=== PATIENT | female | born 1985 | race Caucasian/White ===

== ENCOUNTER 2017-10-15 13:05 | Inpatient (IN) | payer BC, OTHER ==
[2017-10-15] MEDS: HYDROmorphONE 1 MG/ML SYG IV (20:35)
[2017-10-15] MEDS: METOCLOPRAMIDE 10 MG INJ IV (20:35)
[2017-10-15] MEDS: ONDANSETRON 4 MG INJ IV (20:35)
[2017-10-15 20:42] LABS: ADD MAN DIFF? NO
[2017-10-15] MEDS: SOD CHLORIDE 0.9% 1,000 ML IV (20:42)
[2017-10-15 20:46] LABS: BASOPHILS % 0.2 % (0.0-2.0); EOSINOPHILS # 0.1 10^3/ul (0.0-0.5); EOSINOPHILS % 1.3 % (0.0-7.0); HEMATOCRIT 28.9 % (37.0-47.0); HEMOGLOBIN 9.2 g/dl (12.0-16.0); LYMPHOCYTES # 0.8 10^3/ul (0.8-2.9); LYMPHOCYTES % 9.9 % (15.0-51.0); MEAN CORPUSCULAR HEMOGLOBIN 24.6 pg (29.0-33.0); MEAN CORPUSCULAR HGB CONC 31.8 g/dl (32.0-37.0); MEAN CORPUSCULAR VOLUME 77.3 fl (82.0-101.0); MEAN PLATELET VOLUME 11.1 fl (7.4-10.4); MONOCYTE # 0.8 10^3/ul (0.3-0.9); MONOCYTES % 9.7 % (0.0-11.0); NEUTROPHIL # 6.6 10^3/ul (1.6-7.5); NEUTROPHILS % 77.8 % (39.0-77.0); PLATELET COUNT 159 10^3/UL (140-415); RED BLOOD COUNT 3.74 10^6/ul (4.20-5.40); RED CELL DISTRIBUTION WIDTH 18.4 % (11.5-14.5)
[2017-10-15 20:46] LABS: WHITE BLOOD COUNT 8.5 10^3/ul (4.8-10.8)
[2017-10-15 21:06] LABS: ALANINE AMINOTRANSFERASE 32 IU/L (13-69); ALBUMIN 3.3 g/dl (3.3-4.9); ALKALINE PHOSPHATASE 170 IU/L (42-121); ANION GAP 18 (8-16); ASPARTATE AMINO TRANSFERASE 43 IU/L (15-46); BILIRUBIN,INDIRECT 0.5 mg/dl (0-1.1); BILIRUBIN,TOTAL 0.5 mg/dl (0.2-1.3); BLOOD UREA NITROGEN 8 mg/dl (7-20); CARBON DIOXIDE 30 mmol/L (21-31); CHLORIDE 91 mmol/L (97-110); CREATININE 0.44 mg/dl (0.44-1.00); GLUCOSE 116 mg/dl (70-220); LIPASE < 10 U/L (23-300); POTASSIUM 3.4 mmol/L (3.5-5.1); SODIUM 136 mmol/L (135-144); TOTAL PROTEIN 6.6 g/dl (6.1-8.1)
[2017-10-15 21:20] LABS: INR 1.35; PROTIME 16.9 Sec (11.9-14.9); PT RATIO 1.3
[2017-10-15] MEDS ORDERED: NACL 0.9% 3 ML SYG IV (23:30)
[2017-10-15] MEDS ORDERED: ACETAMINOPHEN 325 MG TAB PO (23:30)
[2017-10-16] MEDS: DEXTROSE 5%-0.45% NACL 1,000 ML IV ×2 (00:34→18:22)
[2017-10-16] MEDS: morphine 2 MG INJ IV ×5 (00:52→20:28)
[2017-10-16 05:25] LABS: ADD MAN DIFF? NO
[2017-10-16 05:31] LABS: BASOPHILS % 0.1 % (0.0-2.0); EOSINOPHILS # 0.1 10^3/ul (0.0-0.5); EOSINOPHILS % 0.6 % (0.0-7.0); HEMATOCRIT 26.8 % (37.0-47.0); HEMOGLOBIN 8.5 g/dl (12.0-16.0); LYMPHOCYTES # 0.9 10^3/ul (0.8-2.9); MEAN CORPUSCULAR HEMOGLOBIN 24.6 pg (29.0-33.0); MEAN CORPUSCULAR HGB CONC 31.7 g/dl (32.0-37.0); MEAN CORPUSCULAR VOLUME 77.7 fl (82.0-101.0); MEAN PLATELET VOLUME 11.5 fl (7.4-10.4); MONOCYTE # 0.7 10^3/ul (0.3-0.9); MONOCYTES % 8.4 % (0.0-11.0); NEUTROPHILS % 78.1 % (39.0-77.0); PLATELET COUNT 171 10^3/UL (140-415); RED BLOOD COUNT 3.45 10^6/ul (4.20-5.40); RED CELL DISTRIBUTION WIDTH 18.4 % (11.5-14.5)
[2017-10-16 05:31] LABS: WHITE BLOOD COUNT 7.7 10^3/ul (4.8-10.8)
[2017-10-16 06:03] LABS: ALANINE AMINOTRANSFERASE 34 IU/L (13-69); ALBUMIN 3.1 g/dl (3.3-4.9); ALBUMIN/GLOBULIN RATIO 0.93; ALKALINE PHOSPHATASE 151 IU/L (42-121); ANION GAP 15 (8-16); ASPARTATE AMINO TRANSFERASE 40 IU/L (15-46); BILIRUBIN,INDIRECT 0.3 mg/dl (0-1.1); BILIRUBIN,TOTAL 0.3 mg/dl (0.2-1.3); BLOOD UREA NITROGEN 7 mg/dl (7-20); CALCIUM 8.6 mg/dl (8.4-10.2); CARBON DIOXIDE 29 mmol/L (21-31); CHLORIDE 95 mmol/L (97-110); CREATININE 0.41 mg/dl (0.44-1.00); GLUCOSE 131 mg/dl (70-220); MAGNESIUM 1.7 mg/dl (1.7-2.5); PHOSPHORUS 3.9 mg/dl (2.5-4.9); POTASSIUM 3.4 mmol/L (3.5-5.1); SODIUM 136 mmol/L (135-144); TOTAL PROTEIN 6.4 g/dl (6.1-8.1)
[2017-10-16] MEDS: PANTOPRAZOLE 40 MG INJ IV (06:19)
[2017-10-16] MEDS: METOCLOPRAMIDE 10 MG INJ IV (06:32)
[2017-10-16 07:44] LABS: ADD UMIC YES; UR ASCORBIC ACID NEGATIVE (NEGATIVE); UR BACTERIA FEW /HPF (NONE SEEN); UR BILIRUBIN (Dip) 1+ mg/dL (NEGATIVE); UR BLOOD (Dip) NEGATIVE (NEGATIVE); UR CLARITY SLIGHTLY CLOUDY (CLEAR); UR COLOR AMBER (YELLOW); UR GLUCOSE (Dip) NEGATIVE (NEGATIVE); UR KETONES (Dip) 2+ mg/dL (NEGATIVE); UR LEUKOCYTE ESTERASE (Dip) NEGATIVE Leu/ul (NEGATIVE); UR MUCUS MODERATE /HPF (NONE SEEN); UR NITRITE (Dip) NEGATIVE (NEGATIVE); UR RBC 1 /HPF (0-5); UR SPECIFIC GRAVITY (Dip) 1.029 (1.003-1.030); UR SQUAMOUS EPITHELIAL CELL MANY /HPF (FEW); UR TOTAL PROTEIN (Dip) 2+ mg/dl (NEGATIVE); UR UROBILINOGEN (Dip) 2+ mg/dL (NEGATIVE); UR WBC 10 /HPF (0-5)
[2017-10-16] MEDS: POTASSIUM CHLORIDE 30 MEQ in DEXTROSE 5% 250 ML IVPB (09:43)
[2017-10-16] MEDS ORDERED: HYDROmorphONE 4 MG TAB PO (14:00)
[2017-10-16] MEDS: RIVAROXABAN 20 MG TABLET PO (17:50)
[2017-10-16] MEDS ORDERED: morphine (ER) 30 MG TAB PO ×2 (21:00)
[2017-10-16] MEDS: GABAPENTIN 300 MG CAP PO (21:20)
[2017-10-16] MEDS: morphine (ER) 30 MG TAB PO (21:22)
[2017-10-17] MEDS: DEXTROSE 5%-0.45% NACL 1,000 ML IV ×2 (03:40→09:36)
[2017-10-17] MEDS: PANTOPRAZOLE 40 MG INJ IV (05:47)
[2017-10-17] MEDS: morphine (ER) 30 MG TAB PO ×2 (09:35→20:31)
[2017-10-17] MEDS: SOD FERRIC GLUC COMPLX 125 MG in SOD CHLORIDE 0.9% 100 ML IVPB (10:10)
[2017-10-17 15:02] LABS: IRON 72 ug/dl (35-150)
[2017-10-17 15:11] LABS: % IRON SATURATION 32 % SAT (22-52); TOTAL IRON BINDING CAPACITY 225 ug/dl (241-421)
[2017-10-17] MEDS: RIVAROXABAN 20 MG TABLET PO (17:35)
[2017-10-17] MEDS: HYDROmorphONE 2 MG/ML SYG IV (17:35)
[2017-10-17] MEDS: ONDANSETRON 4 MG INJ IV (20:30)
[2017-10-17] MEDS: GABAPENTIN 300 MG CAP PO (20:30)
[2017-10-17] MEDS: CEFTRIAXONE 1 GM/50 ML (PMX) 50 ML IVPB (21:45)
[2017-10-18] MEDS: DEXTROSE 5%-0.45% NACL 1,000 ML IV (00:38)
[2017-10-18] MEDS: PANTOPRAZOLE 40 MG INJ IV (04:30)
[2017-10-18] MEDS: HYDROmorphONE 2 MG/ML SYG IV ×3 (04:40→17:21)
[2017-10-18 05:19] LABS: ADD MAN DIFF? NO
[2017-10-18 05:24] LABS: BASOPHILS % 0.1 % (0.0-2.0); EOSINOPHILS # 0.1 10^3/ul (0.0-0.5); EOSINOPHILS % 0.8 % (0.0-7.0); HEMATOCRIT 26.6 % (37.0-47.0); HEMOGLOBIN 8.3 g/dl (12.0-16.0); LYMPHOCYTES # 0.8 10^3/ul (0.8-2.9); LYMPHOCYTES % 9.5 % (15.0-51.0); MEAN CORPUSCULAR HEMOGLOBIN 24.3 pg (29.0-33.0); MEAN CORPUSCULAR HGB CONC 31.2 g/dl (32.0-37.0); MONOCYTE # 0.7 10^3/ul (0.3-0.9); MONOCYTES % 8.4 % (0.0-11.0); NEUTROPHIL # 6.7 10^3/ul (1.6-7.5); NEUTROPHILS % 80.4 % (39.0-77.0); PLATELET COUNT 145 10^3/UL (140-415); RED BLOOD COUNT 3.41 10^6/ul (4.20-5.40); RED CELL DISTRIBUTION WIDTH 18.6 % (11.5-14.5)
[2017-10-18 05:24] LABS: WHITE BLOOD COUNT 8.3 10^3/ul (4.8-10.8)
[2017-10-18 06:03] LABS: MAGNESIUM 1.4 mg/dl (1.7-2.5)
[2017-10-18 06:03] LABS: PHOSPHORUS 3.6 mg/dl (2.5-4.9)
[2017-10-18 06:06] LABS: ANION GAP 12 (8-16); CARBON DIOXIDE 29 mmol/L (21-31); CHLORIDE 98 mmol/L (97-110); CREATININE 0.43 mg/dl (0.44-1.00); GLUCOSE 116 mg/dl (70-220); POTASSIUM 3.1 mmol/L (3.5-5.1); SODIUM 136 mmol/L (135-144)
[2017-10-18 06:10] LABS: BLOOD UREA NITROGEN < 2 mg/dl (7-20)
[2017-10-18] MEDS: ONDANSETRON 4 MG INJ IV (07:57)
[2017-10-18] MEDS: morphine (ER) 30 MG TAB PO ×2 (09:07→20:42)
[2017-10-18] MEDS ORDERED: MEPERIDINE 50 MG INJ IV (10:00)
[2017-10-18] MEDS ORDERED: DIPHENHYDRAMINE 50 MG INJ IV (10:00)
[2017-10-18] MEDS ORDERED: METHYLPREDNISOLONE 125 MG INJ IV (10:00)
[2017-10-18] MEDS: POTASSIUM CHLORIDE (SR) 20 MEQ TAB PO (10:38)
[2017-10-18] MEDS: SOD FERRIC GLUC COMPLX 125 MG in SOD CHLORIDE 0.9% 100 ML IVPB (10:38)
[2017-10-18] MEDS: MAGNESIUM SULFATE 2 GM/50 ML 50 ML IVPB (11:41)
[2017-10-18] MEDS: SOD CHLORIDE 0.9% 1,000 ML IV (16:28)
[2017-10-18] MEDS: RIVAROXABAN 20 MG TABLET PO (17:21)
[2017-10-18 18:39] LABS: ADD UMIC NO; UR ASCORBIC ACID NEGATIVE (NEGATIVE); UR BILIRUBIN (Dip) NEGATIVE (NEGATIVE); UR BLOOD (Dip) NEGATIVE (NEGATIVE); UR CLARITY CLEAR (CLEAR); UR COLOR YELLOW (YELLOW); UR GLUCOSE (Dip) NEGATIVE (NEGATIVE); UR KETONES (Dip) NEGATIVE (NEGATIVE); UR LEUKOCYTE ESTERASE (Dip) NEGATIVE Leu/ul (NEGATIVE); UR NITRITE (Dip) NEGATIVE (NEGATIVE); UR SPECIFIC GRAVITY (Dip) 1.009 (1.003-1.030); UR TOTAL PROTEIN (Dip) NEGATIVE (NEGATIVE); UR UROBILINOGEN (Dip) 2+ mg/dL (NEGATIVE)
[2017-10-18] MEDS: GABAPENTIN 300 MG CAP PO (20:42)
[2017-10-18] MEDS: DEXAMETHASONE 4 MG/ML 1 ML INJ IV (20:43)
[2017-10-18] MEDS: ONDANSETRON IV (20:44)
[2017-10-18] MEDS: DEXTROSE 5% IV ×2 (20:44→21:21)
[2017-10-18] MEDS: DIPHENHYDRAMINE IV (20:44)
[2017-10-18] MEDS ORDERED: ATROPINE 0.4 MG INJ IV (21:00)
[2017-10-18] MEDS: OXALIPLATIN IV (21:21)
[2017-10-19] MEDS: CEFTRIAXONE 1 GM/50 ML (PMX) 50 ML IVPB ×2 (00:38→21:36)
[2017-10-19] MEDS: LEUCOVORIN CALCIUM IV (01:11)
[2017-10-19] MEDS: DEXTROSE 5% IV ×3 (01:11→06:40)
[2017-10-19] MEDS: SOD CHLORIDE 0.9% 1,000 ML IV ×4 (01:30→23:13)
[2017-10-19] MEDS: ATROPINE 1 MG INJ IV (03:21)
[2017-10-19] MEDS: IRINOTECAN IV (03:34)
[2017-10-19 05:24] LABS: ADD MAN DIFF? NO
[2017-10-19 05:37] LABS: ABNORMAL IP MESSAGE 1; BASOPHILS % 0.1 % (0.0-2.0); HEMATOCRIT 26.9 % (37.0-47.0); HEMOGLOBIN 8.6 g/dl (12.0-16.0); LYMPHOCYTES # 0.4 10^3/ul (0.8-2.9); LYMPHOCYTES % 4.5 % (15.0-51.0); MEAN CORPUSCULAR HEMOGLOBIN 24.6 pg (29.0-33.0); MEAN CORPUSCULAR VOLUME 77.1 fl (82.0-101.0); MEAN PLATELET VOLUME 11.9 fl (7.4-10.4); MONOCYTE # 0.1 10^3/ul (0.3-0.9); MONOCYTES % 1.6 % (0.0-11.0); NEUTROPHIL # 7.9 10^3/ul (1.6-7.5); PLATELET COUNT 131 10^3/UL (140-415); RED BLOOD COUNT 3.49 10^6/ul (4.20-5.40); RED CELL DISTRIBUTION WIDTH 18.5 % (11.5-14.5)
[2017-10-19 05:37] LABS: WHITE BLOOD COUNT 8.5 10^3/ul (4.8-10.8)
[2017-10-19 05:52] LABS: POSITIVE DIFF @See below
[2017-10-19 06:14] LABS: ALANINE AMINOTRANSFERASE 30 IU/L (13-69); ALBUMIN 2.9 g/dl (3.3-4.9); ALBUMIN/GLOBULIN RATIO 0.93; ALKALINE PHOSPHATASE 151 IU/L (42-121); ANION GAP 14 (8-16); ASPARTATE AMINO TRANSFERASE 36 IU/L (15-46); BILIRUBIN,INDIRECT 0.2 mg/dl (0-1.1); BILIRUBIN,TOTAL 0.2 mg/dl (0.2-1.3); CALCIUM 8.6 mg/dl (8.4-10.2); CARBON DIOXIDE 27 mmol/L (21-31); CHLORIDE 97 mmol/L (97-110); CREATININE 0.41 mg/dl (0.44-1.00); GLUCOSE 222 mg/dl (70-220); POTASSIUM 3.8 mmol/L (3.5-5.1); SODIUM 134 mmol/L (135-144)
[2017-10-19 06:15] LABS: BLOOD UREA NITROGEN < 2 mg/dl (7-20)
[2017-10-19 06:29] LABS: ADD UMIC NO; UR ASCORBIC ACID NEGATIVE (NEGATIVE); UR BILIRUBIN (Dip) NEGATIVE (NEGATIVE); UR BLOOD (Dip) NEGATIVE (NEGATIVE); UR CLARITY CLEAR (CLEAR); UR COLOR YELLOW (YELLOW); UR GLUCOSE (Dip) 1+ mg/dL (NEGATIVE); UR KETONES (Dip) NEGATIVE (NEGATIVE); UR LEUKOCYTE ESTERASE (Dip) NEGATIVE Leu/ul (NEGATIVE); UR NITRITE (Dip) NEGATIVE (NEGATIVE); UR SPECIFIC GRAVITY (Dip) 1.005 (1.003-1.030); UR TOTAL PROTEIN (Dip) NEGATIVE (NEGATIVE); UR UROBILINOGEN (Dip) 1+ mg/dL (NEGATIVE)
[2017-10-19] MEDS: PANTOPRAZOLE 40 MG INJ IV ×2 (06:38→17:36)
[2017-10-19] MEDS: FLUOROURACIL IV (06:40)
[2017-10-19] MEDS: ONDANSETRON 4 MG INJ IV ×2 (06:44→12:14)
[2017-10-19 06:57] LABS: MAGNESIUM 1.7 mg/dl (1.7-2.5)
[2017-10-19] MEDS: SOD FERRIC GLUC COMPLX 125 MG in SOD CHLORIDE 0.9% 100 ML IVPB (09:05)
[2017-10-19] MEDS: morphine (ER) 30 MG TAB PO ×2 (10:00→21:00)
[2017-10-19] MEDS ORDERED: CALCIUM CARBONATE 500 MG CHEW TAB PO (16:00)
[2017-10-19] MEDS: METOCLOPRAMIDE 10 MG INJ IV (17:36)
[2017-10-19] MEDS: RIVAROXABAN 20 MG TABLET PO (17:36)
[2017-10-19] MEDS: GABAPENTIN 300 MG CAP PO (21:36)
[2017-10-20 05:50] LABS: ADD MAN DIFF? NO
[2017-10-20] MEDS: DEXAMETHASONE 4 MG/ML 1 ML INJ IV (05:51)
[2017-10-20] MEDS: PANTOPRAZOLE 40 MG INJ IV ×2 (05:51→17:52)
[2017-10-20] MEDS: DEXTROSE 5% IV ×2 (05:51→06:28)
[2017-10-20] MEDS: DIPHENHYDRAMINE IV (05:51)
[2017-10-20] MEDS: ONDANSETRON IV (05:51)
[2017-10-20 06:06] LABS: BASOPHILS % 0.1 % (0.0-2.0); HEMATOCRIT 30.2 % (37.0-47.0); HEMOGLOBIN 9.6 g/dl (12.0-16.0); LYMPHOCYTES # 1.3 10^3/ul (0.8-2.9); LYMPHOCYTES % 9.3 % (15.0-51.0); MEAN CORPUSCULAR HEMOGLOBIN 24.7 pg (29.0-33.0); MEAN CORPUSCULAR HGB CONC 31.8 g/dl (32.0-37.0); MEAN CORPUSCULAR VOLUME 77.6 fl (82.0-101.0); MEAN PLATELET VOLUME 11.5 fl (7.4-10.4); MONOCYTE # 0.7 10^3/ul (0.3-0.9); MONOCYTES % 4.9 % (0.0-11.0); NEUTROPHILS % 84.8 % (39.0-77.0); PLATELET COUNT 249 10^3/UL (140-415); RED BLOOD COUNT 3.89 10^6/ul (4.20-5.40)
[2017-10-20 06:06] LABS: WHITE BLOOD COUNT 14.2 10^3/ul (4.8-10.8)
[2017-10-20] MEDS: FLUOROURACIL IV (06:28)
[2017-10-20 07:01] LABS: ALANINE AMINOTRANSFERASE 27 IU/L (13-69); ALBUMIN/GLOBULIN RATIO 0.96; ALKALINE PHOSPHATASE 153 IU/L (42-121); ANION GAP 17 (8-16); ASPARTATE AMINO TRANSFERASE 35 IU/L (15-46); BILIRUBIN,INDIRECT 0.4 mg/dl (0-1.1); BILIRUBIN,TOTAL 0.4 mg/dl (0.2-1.3); BLOOD UREA NITROGEN 6 mg/dl (7-20); CALCIUM 8.4 mg/dl (8.4-10.2); CARBON DIOXIDE 27 mmol/L (21-31); CHLORIDE 98 mmol/L (97-110); CREATININE 0.54 mg/dl (0.44-1.00); GLUCOSE 133 mg/dl (70-220); POTASSIUM 4.1 mmol/L (3.5-5.1); SODIUM 138 mmol/L (135-144); TOTAL PROTEIN 6.1 g/dl (6.1-8.1)
[2017-10-20] MEDS: morphine (ER) 30 MG TAB PO ×2 (09:00→21:00)
[2017-10-20 12:57] LABS: ADD UMIC NO; UR AMORPHOUS CRYSTAL FEW /HPF (NONE SEEN); UR ASCORBIC ACID NEGATIVE (NEGATIVE); UR BACTERIA FEW /HPF (NONE SEEN); UR BILIRUBIN (Dip) NEGATIVE (NEGATIVE); UR BLOOD (Dip) NEGATIVE (NEGATIVE); UR BUDDING YEAST FEW /HPF (NONE SEEN); UR CLARITY SLIGHTLY CLOUDY (CLEAR); UR COLOR YELLOW (YELLOW); UR GLUCOSE (Dip) NEGATIVE (NEGATIVE); UR KETONES (Dip) NEGATIVE (NEGATIVE); UR LEUKOCYTE ESTERASE (Dip) NEGATIVE Leu/ul (NEGATIVE); UR MUCUS FEW /HPF (NONE SEEN); UR NITRITE (Dip) NEGATIVE (NEGATIVE); UR RBC 0 /HPF (0-5); UR SPECIFIC GRAVITY (Dip) 1.011 (1.003-1.030); UR SQUAMOUS EPITHELIAL CELL FEW /HPF (FEW); UR TOTAL PROTEIN (Dip) NEGATIVE (NEGATIVE); UR UROBILINOGEN (Dip) 2+ mg/dL (NEGATIVE); UR WBC 1 /HPF (0-5)
[2017-10-20] MEDS: SOD CHLORIDE 0.9% 1,000 ML IV (13:39)
[2017-10-20] MEDS: RIVAROXABAN 20 MG TABLET PO (17:52)
[2017-10-20] MEDS: GABAPENTIN 300 MG CAP PO (21:16)
[2017-10-20] MEDS: CEFTRIAXONE 1 GM/50 ML (PMX) 50 ML IVPB (21:16)
[2017-10-20] MEDS: ZOLPIDEM 5 MG TAB PO (22:48)
[2017-10-21] MEDS: SOD CHLORIDE 0.9% 1,000 ML IV ×3 (01:50→22:57)
[2017-10-21] MEDS: PANTOPRAZOLE 40 MG INJ IV (06:32)
[2017-10-21] MEDS: morphine (ER) 30 MG TAB PO ×2 (09:00→21:00)
[2017-10-21] MEDS: ONDANSETRON 4 MG INJ IV ×2 (09:12→18:18)
[2017-10-21] MEDS: RIVAROXABAN 20 MG TABLET PO (17:41)
[2017-10-21] MEDS: PANTOPRAZOLE (EC) 40 MG TAB PO (17:41)
[2017-10-21] MEDS: GABAPENTIN 300 MG CAP PO (20:35)
[2017-10-21] MEDS: CEFTRIAXONE 1 GM/50 ML (PMX) 50 ML IVPB (20:35)
[2017-10-22] MEDS: PANTOPRAZOLE (EC) 40 MG TAB PO (05:37)
[2017-10-22 05:42] LABS: ADD MAN DIFF? NO
[2017-10-22 05:47] LABS: ABNORMAL IP MESSAGE 1; EOSINOPHILS % 0.3 % (0.0-7.0); HEMATOCRIT 25.3 % (37.0-47.0); LYMPHOCYTES # 0.3 10^3/ul (0.8-2.9); LYMPHOCYTES % 11.2 % (15.0-51.0); MEAN CORPUSCULAR HEMOGLOBIN 24.8 pg (29.0-33.0); MEAN CORPUSCULAR HGB CONC 31.6 g/dl (32.0-37.0); MEAN CORPUSCULAR VOLUME 78.3 fl (82.0-101.0); MEAN PLATELET VOLUME 11.1 fl (7.4-10.4); MONOCYTES % 1.4 % (0.0-11.0); NEUTROPHIL # 2.5 10^3/ul (1.6-7.5); NEUTROPHILS % 86.4 % (39.0-77.0); PLATELET COUNT 143 10^3/UL (140-415); RED BLOOD COUNT 3.23 10^6/ul (4.20-5.40); RED CELL DISTRIBUTION WIDTH 18.8 % (11.5-14.5)
[2017-10-22 05:47] LABS: WHITE BLOOD COUNT 2.9 10^3/ul (4.8-10.8)
[2017-10-22 05:56] LABS: POSITIVE DIFF @See below
[2017-10-22 06:20] LABS: ALANINE AMINOTRANSFERASE 61 IU/L (13-69); ALBUMIN 2.6 g/dl (3.3-4.9); ALBUMIN/GLOBULIN RATIO 0.92; ALKALINE PHOSPHATASE 121 IU/L (42-121); ANION GAP 12 (8-16); ASPARTATE AMINO TRANSFERASE 94 IU/L (15-46); BILIRUBIN,INDIRECT 0.3 mg/dl (0-1.1); BILIRUBIN,TOTAL 0.3 mg/dl (0.2-1.3); BLOOD UREA NITROGEN 6 mg/dl (7-20); CALCIUM 7.6 mg/dl (8.4-10.2); CARBON DIOXIDE 24 mmol/L (21-31); CHLORIDE 101 mmol/L (97-110); CREATININE 0.47 mg/dl (0.44-1.00); GLUCOSE 104 mg/dl (70-220); POTASSIUM 3.8 mmol/L (3.5-5.1); SODIUM 133 mmol/L (135-144); TOTAL PROTEIN 5.4 g/dl (6.1-8.1)
[2017-10-22] MEDS: morphine (ER) 30 MG TAB PO (08:23)
[2017-10-22] MEDS: SOD CHLORIDE 0.9% 1,000 ML IV (08:24)
[2017-10-22] MEDS ORDERED: HEPARIN (100 UNITS/ML) 5 ML SYG (12:44)
[2017-10-22] MEDS ORDERED: HEPARIN (100 UNITS/ML) 5 ML SYG CATHETER (13:00)
[2017-10-22] MEDS: HEPARIN (100 UNITS/ML) 5 ML SYG CATHETER (13:14)
== END 2017-10-22 13:21 | disposition home or self-care (01) | DRG 391 ==
LOC: MS1 23:43 → E/R 13:05 → MS1 22:15
DX: R11.2 Nausea with vomiting, unspecified (principal); I81 Portal vein thrombosis; C25.9 Malignant neoplasm of pancreas, unspecified; N39.0 Urinary tract infection, site not specified; K83.8 Other specified diseases of biliary tract; B96.20 Unspecified Escherichia coli [E. coli] as the cause of diseases classified elsewhere; R16.1 Splenomegaly, not elsewhere classified; E86.0 Dehydration; E87.6 Hypokalemia; D64.9 Anemia, unspecified; Z96.89 Presence of other specified functional implants; R10.9 Unspecified abdominal pain; Z92.21 Personal history of antineoplastic chemotherapy
CPT/HCPCS: 36415; 71045; 74018; 74176; 80048; 80053; 81001; 81003; 82728; 83540; 83690; 83735; 84100; 85025; 85610; 87086; 96374; 96375; 99285-25; J9190; J9206

== ENCOUNTER 2017-11-11 10:08 | Inpatient (IN) | payer BC ==
[2017-11-11] MEDS: SOD CHLORIDE 0.9% 500 ML IV (12:45)
[2017-11-11] MEDS: CEFEPIME 1GM/50 ML (PMX) 50 ML IVPB (12:45)
[2017-11-11] MEDS: ACETAMINOPHEN 325 MG TAB PO (12:45)
[2017-11-11 13:06] LABS: WHITE BLOOD COUNT 20.3 10^3/ul (4.8-10.8)
[2017-11-11 13:06] LABS: ABNORMAL IP MESSAGE 1; HEMATOCRIT 17.7 % (37.0-47.0); MEAN CORPUSCULAR HEMOGLOBIN 27.1 pg (29.0-33.0); MEAN CORPUSCULAR HGB CONC 31.1 g/dl (32.0-37.0); MEAN CORPUSCULAR VOLUME 87.2 fl (82.0-101.0); MEAN PLATELET VOLUME 10.4 fl (7.4-10.4); NUCLEATED RED BLOOD CELLS% 0.8 /100WBC (0.0-0.0); PLATELET COUNT 256 10^3/UL (140-415); RED BLOOD COUNT 2.03 10^6/ul (4.20-5.40); RED CELL DISTRIBUTION WIDTH 25.4 % (11.5-14.5)
[2017-11-11 13:10] LABS: ADD UMIC YES; UR ASCORBIC ACID NEGATIVE (NEGATIVE); UR BACTERIA FEW /HPF (NONE SEEN); UR BILIRUBIN (Dip) NEGATIVE (NEGATIVE); UR BLOOD (Dip) NEGATIVE (NEGATIVE); UR CLARITY TURBID (CLEAR); UR COLOR RED (YELLOW); UR GLUCOSE (Dip) 1+ mg/dL (NEGATIVE); UR KETONES (Dip) 1+ mg/dL (NEGATIVE); UR LEUKOCYTE ESTERASE (Dip) NEGATIVE Leu/ul (NEGATIVE); UR MUCUS MANY /HPF (NONE SEEN); UR NITRITE (Dip) NEGATIVE (NEGATIVE); UR RBC 2 /HPF (0-5); UR SPECIFIC GRAVITY (Dip) 1.018 (1.003-1.030); UR SQUAMOUS EPITHELIAL CELL FEW /HPF (FEW); UR TOTAL PROTEIN (Dip) 1+ mg/dl (NEGATIVE); UR UROBILINOGEN (Dip) 2+ mg/dL (NEGATIVE); UR WBC 7 /HPF (0-5)
[2017-11-11 13:15] LABS: POSITIVE DIFF @See below
[2017-11-11 13:17] LABS: ADD MAN DIFF? YES; HEMOGLOBIN 5.5 g/dl (12.0-16.0)
[2017-11-11 13:28] LABS: INR 1.61; PROTIME 19.5 Sec (11.9-14.9); PT RATIO 1.5
[2017-11-11 13:29] LABS: PARTIAL THROMBOPLASTIN TIME 39.2 Sec (25.0-35.0)
[2017-11-11 13:30] LABS: LACTIC ACID 1.2 mmol/L (0.5-2.0)
[2017-11-11 13:32] LABS: ALANINE AMINOTRANSFERASE 53 IU/L (13-69); ALBUMIN 2.8 g/dl (3.3-4.9); ALBUMIN/GLOBULIN RATIO 0.96; ALKALINE PHOSPHATASE 332 IU/L (42-121); ANION GAP 11 (8-16); ASPARTATE AMINO TRANSFERASE 119 IU/L (15-46); BLOOD UREA NITROGEN 7 mg/dl (7-20); CALCIUM 8.3 mg/dl (8.4-10.2); CARBON DIOXIDE 34 mmol/L (21-31); CHLORIDE 88 mmol/L (97-110); CREATININE 0.35 mg/dl (0.44-1.00); GLUCOSE 134 mg/dl (70-220); POTASSIUM 3.1 mmol/L (3.5-5.1); SODIUM 130 mmol/L (135-144); TOTAL PROTEIN 5.7 g/dl (6.1-8.1)
[2017-11-11 13:42] LABS: LIPASE < 10 U/L (23-300)
[2017-11-11 14:13] LABS: ANISOCYTOSIS 2+ (0-0); BAND NEUTROPHILS #M 2.4 10^3/ul (0.0-0.6); BAND NEUTROPHILS % (M) 12 % (0-4); ERYTHROBLAST% (NRBC) (M) 2 % (0-0); LYMPHOCYTES #M 0.4 10^3/ul (0.8-2.9); LYMPHOCYTES % (M) 2 % (15-51); METAMYELOCYTES #M 0.2 10^3/ul (0.0-0.0); METAMYELOCYTES %M 1 % (0-0); MICROCYTOSIS 2+ (0-0); MONOCYTES % (M) 5 % (0-11); MYELOCYTES #M 0.2 10^3/ul (0.0-0.0); MYELOCYTES % (M) 1 % (0-0); OVALOCYTES 1+ (0-0); PLATELET ESTIMATE NORMAL; POIKILOCYTOSIS 2+ (0-0); POLYCHROMASIA 3+ (0-0); SEG NEUT #M 16.5 10^3/ul (1.7-7.5); SEGMENTED NEUTROPHILS (M) % 79 % (39-77); SMUDGE%M 3 % (0-0); TEAR DROP CELLS 2+ (0-0)
[2017-11-11] MEDS ORDERED: ACETAMINOPHEN 325 MG TAB PO (14:30)
[2017-11-11 15:03] LABS: IMMEDIATE SPIN CROSSMATCH 1 6
[2017-11-11] MEDS: SOD CHLORIDE 0.9% 250 ML IV (15:25)
[2017-11-11 15:53] LABS: LACTIC ACID < 0.5 mmol/L (0.5-2.0)
[2017-11-11] MEDS: HYDROmorphONE 1 MG/ML SYG IV (18:05)
[2017-11-11] MEDS: ONDANSETRON 4 MG INJ IV (18:11)
[2017-11-11 18:40] LABS: LACTIC ACID 0.9 mmol/L (0.5-2.0)
[2017-11-11] MEDS: SOD CHLORIDE 0.9% 1,000 ML IV (18:44)
[2017-11-11] MEDS ORDERED: HYDROCODONE/APAP (5/325) TAB PO (19:00)
[2017-11-11] MEDS ORDERED: MAGNESIUM HYDROXIDE 30ML CUP PO (19:00)
[2017-11-11] MEDS ORDERED: hydrALAzine 20 MG INJ IV (19:00)
[2017-11-11] MEDS ORDERED: NITROGLYCERIN (SL) 0.4 MG TAB SL (19:00)
[2017-11-11] MEDS ORDERED: LORAZEPAM 2 MG INJ IV (19:00)
[2017-11-11] MEDS ORDERED: NA PHOSPHATE/BIPHOS 133 ML ENEMA PR (19:00)
[2017-11-11] MEDS ORDERED: ALBUTEROL/IPRATROPIUM (NEB) 3 ML AMP HHN (19:00)
[2017-11-11] MEDS ORDERED: morphine 2 MG INJ IV (19:00)
[2017-11-11] MEDS ORDERED: ONDANSETRON 4 MG INJ IV (19:00)
[2017-11-11] MEDS ORDERED: NACL 0.9% 3 ML SYG IV (19:00)
[2017-11-11 20:11] LABS: FREE T4 (FREE THYROXINE) 1.21 ng/dl (0.79-2.35)
[2017-11-12] MEDS: PIPER-TAZO 3.375 GM IV (PMX) 100 ML IVPB ×5 (00:39→23:56)
[2017-11-12] MEDS: HYDROmorphONE 4 MG TAB PO ×3 (03:03→20:46)
[2017-11-12] MEDS: PANTOPRAZOLE 40 MG INJ IV (07:03)
[2017-11-12] MEDS: SOD CHLORIDE 0.9% 1,000 ML IV ×3 (07:04→21:12)
[2017-11-12 07:11] LABS: ADD MAN DIFF? NO
[2017-11-12 07:16] LABS: ABNORMAL IP MESSAGE 1; BASOPHILS % 0.2 % (0.0-2.0); EOSINOPHILS % 0.1 % (0.0-7.0); HEMATOCRIT 21.7 % (37.0-47.0); LYMPHOCYTES # 0.9 10^3/ul (0.8-2.9); LYMPHOCYTES % 4.5 % (15.0-51.0); MEAN CORPUSCULAR HEMOGLOBIN 27.6 pg (29.0-33.0); MEAN CORPUSCULAR HGB CONC 32.3 g/dl (32.0-37.0); MEAN CORPUSCULAR VOLUME 85.4 fl (82.0-101.0); MEAN PLATELET VOLUME 10.2 fl (7.4-10.4); MONOCYTE # 1.4 10^3/ul (0.3-0.9); MONOCYTES % 7.3 % (0.0-11.0); NEUTROPHIL # 16.4 10^3/ul (1.6-7.5); NEUTROPHILS % 83.8 % (39.0-77.0); NUCLEATED RED BLOOD CELLS # 0.1 10^3/ul (0.0-0.0); NUCLEATED RED BLOOD CELLS% 0.7 /100WBC (0.0-0.0); PLATELET COUNT 206 10^3/UL (140-415); RED BLOOD COUNT 2.54 10^6/ul (4.20-5.40); RED CELL DISTRIBUTION WIDTH 22.1 % (11.5-14.5)
[2017-11-12 07:16] LABS: WHITE BLOOD COUNT 19.5 10^3/ul (4.8-10.8)
[2017-11-12 07:18] LABS: POSITIVE DIFF @See below
[2017-11-12 07:30] LABS: HEMOGLOBIN A1C 5.3 % (0-5.9)
[2017-11-12 07:39] LABS: ANION GAP 9 (8-16); BLOOD UREA NITROGEN 6 mg/dl (7-20); CALCIUM 8.1 mg/dl (8.4-10.2); CARBON DIOXIDE 33 mmol/L (21-31); CHLORIDE 90 mmol/L (97-110); CREATININE 0.38 mg/dl (0.44-1.00); GLUCOSE 116 mg/dl (70-220); MAGNESIUM 1.7 mg/dl (1.7-2.5); PHOSPHORUS 3.8 mg/dl (2.5-4.9); POTASSIUM 3.2 mmol/L (3.5-5.1); SODIUM 129 mmol/L (135-144)
[2017-11-12 07:40] LABS: CHOLESTEROL 101 mg/dl (100-200)
[2017-11-12 07:40] LABS: CHOL/HDL RATIO 5.3 RATIO; HDL CHOLESTEROL 19 mg/dl (34-82); LDL CHOLESTEROL,CALCULATED 69 mg/dl; TRIGLYCERIDES 65 mg/dl (0-149)
[2017-11-12 08:10] LABS: THYROID STIMULATING HORMONE 0.869 MIU/L (0.465-4.680)
[2017-11-12 09:20] LABS: PATH REVIEW CH
[2017-11-12 12:23] LABS: ALANINE AMINOTRANSFERASE 60 IU/L (13-69); ALBUMIN 2.6 g/dl (3.3-4.9); ALBUMIN/GLOBULIN RATIO 0.89; ALKALINE PHOSPHATASE 370 IU/L (42-121); ANION GAP 8 (8-16); ASPARTATE AMINO TRANSFERASE 111 IU/L (15-46); BILIRUBIN,INDIRECT 1.4 mg/dl (0-1.1); BILIRUBIN,TOTAL 1.5 mg/dl (0.2-1.3); BLOOD UREA NITROGEN 7 mg/dl (7-20); CARBON DIOXIDE 32 mmol/L (21-31); CHLORIDE 89 mmol/L (97-110); CREATININE 0.39 mg/dl (0.44-1.00); GLUCOSE 125 mg/dl (70-220); POTASSIUM 3.2 mmol/L (3.5-5.1); SODIUM 126 mmol/L (135-144); TOTAL PROTEIN 5.5 g/dl (6.1-8.1)
[2017-11-13 05:07] LABS: ADD MAN DIFF? NO
[2017-11-13 05:08] LABS: ABNORMAL IP MESSAGE 1; BASOPHILS % 0.1 % (0.0-2.0); EOSINOPHILS % 0.1 % (0.0-7.0); HEMATOCRIT 20.7 % (37.0-47.0); LYMPHOCYTES # 0.7 10^3/ul (0.8-2.9); MEAN CORPUSCULAR HEMOGLOBIN 27.1 pg (29.0-33.0); MEAN CORPUSCULAR HGB CONC 31.4 g/dl (32.0-37.0); MEAN CORPUSCULAR VOLUME 86.3 fl (82.0-101.0); MEAN PLATELET VOLUME 10.1 fl (7.4-10.4); MONOCYTE # 1.2 10^3/ul (0.3-0.9); MONOCYTES % 7.1 % (0.0-11.0); NEUTROPHIL # 14.3 10^3/ul (1.6-7.5); NEUTROPHILS % 85.1 % (39.0-77.0); NUCLEATED RED BLOOD CELLS # 0.1 10^3/ul (0.0-0.0); NUCLEATED RED BLOOD CELLS% 0.5 /100WBC (0.0-0.0); PLATELET COUNT 201 10^3/UL (140-415); RED CELL DISTRIBUTION WIDTH 22.5 % (11.5-14.5)
[2017-11-13 05:08] LABS: WHITE BLOOD COUNT 16.8 10^3/ul (4.8-10.8)
[2017-11-13] MEDS: PANTOPRAZOLE 40 MG INJ IV (05:13)
[2017-11-13] MEDS: PIPER-TAZO 3.375 GM IV (PMX) 100 ML IVPB ×5 (05:13→20:10)
[2017-11-13 05:15] LABS: POSITIVE DIFF @See below
[2017-11-13 05:18] LABS: HEMOGLOBIN 6.5 g/dl (12.0-16.0)
[2017-11-13 05:29] LABS: ANION GAP 9 (8-16); BLOOD UREA NITROGEN 6 mg/dl (7-20); CALCIUM 7.9 mg/dl (8.4-10.2); CARBON DIOXIDE 31 mmol/L (21-31); CHLORIDE 93 mmol/L (97-110); CREATININE 0.38 mg/dl (0.44-1.00); GLUCOSE 109 mg/dl (70-220); POTASSIUM 3.1 mmol/L (3.5-5.1); SODIUM 130 mmol/L (135-144)
[2017-11-13 05:30] LABS: MAGNESIUM 1.7 mg/dl (1.7-2.5)
[2017-11-13] MEDS: HYDROmorphONE 4 MG TAB PO ×3 (05:40→22:10)
[2017-11-13] MEDS: SOD CHLORIDE 0.9% 1,000 ML IV ×2 (08:44→10:44)
[2017-11-13] MEDS: ACETAMINOPHEN 325 MG TAB PO ×2 (10:04→22:37)
[2017-11-13 10:09] LABS: ANISOCYTOSIS 2+ (0-0); BAND NEUTROPHILS #M 0.6 10^3/ul (0.0-0.6); BAND NEUTROPHILS % (M) 4 % (0-4); EOSINOPHILS % (M) 1 % (0-7); GIANT THROMBO% (M) 1 % (0-0); HYPOCHROMASIA 1+ (0-0); LYMPHOCYTES #M 0.8 10^3/ul (0.8-2.9); LYMPHOCYTES % (M) 5 % (15-51); MYELOCYTES #M 0.1 10^3/ul (0.0-0.0); MYELOCYTES % (M) 1 % (0-0); OVALOCYTES 1+ (0-0); PLATELET ESTIMATE NORMAL; POIKILOCYTOSIS 1+ (0-0); POLYCHROMASIA 2+ (0-0); SEG NEUT #M 15.1 10^3/ul (1.6-7.5); SEGMENTED NEUTROPHILS (M) % 89 % (39-77); SMUDGE%M 1 % (0-0); TEAR DROP CELLS 1+ (0-0)
[2017-11-13] MEDS: POTASSIUM CHLORIDE (SR) 20 MEQ TAB PO (13:41)
[2017-11-13] MEDS: DOCUSATE SODIUM 100 MG CAP PO ×2 (13:48→20:09)
[2017-11-13] MEDS ORDERED: DIPHENHYDRAMINE 50 MG INJ IV (19:00)
[2017-11-13] MEDS ORDERED: METHYLPREDNISOLONE 125 MG INJ IV (19:00)
[2017-11-13] MEDS: MAGNESIUM OXIDE 400 MG TAB PO (20:09)
[2017-11-13] MEDS ORDERED: DEXTROSE 5% IVPB (21:00)
[2017-11-13] MEDS ORDERED: DEXAMETHASONE IVPB (21:00)
[2017-11-13] MEDS ORDERED: ONDANSETRON IVPB (21:00)
[2017-11-14] MEDS: PIPER-TAZO 3.375 GM IV (PMX) 100 ML IVPB ×5 (01:19→23:26)
[2017-11-14 03:45] LABS: ADD UMIC NO; UR ASCORBIC ACID NEGATIVE (NEGATIVE); UR BILIRUBIN (Dip) NEGATIVE (NEGATIVE); UR BLOOD (Dip) NEGATIVE (NEGATIVE); UR CLARITY CLEAR (CLEAR); UR COLOR AMBER (YELLOW); UR GLUCOSE (Dip) NEGATIVE (NEGATIVE); UR KETONES (Dip) TRACE mg/dL (NEGATIVE); UR LEUKOCYTE ESTERASE (Dip) NEGATIVE Leu/ul (NEGATIVE); UR NITRITE (Dip) NEGATIVE (NEGATIVE); UR TOTAL PROTEIN (Dip) NEGATIVE (NEGATIVE); UR UROBILINOGEN (Dip) 2+ mg/dL (NEGATIVE)
[2017-11-14 04:53] LABS: ADD MAN DIFF? NO
[2017-11-14 04:57] LABS: BASOPHILS % 0.2 % (0.0-2.0); HEMATOCRIT 26.8 % (37.0-47.0); HEMOGLOBIN 8.9 g/dl (12.0-16.0); LYMPHOCYTES # 0.9 10^3/ul (0.8-2.9); LYMPHOCYTES % 4.1 % (15.0-51.0); MEAN CORPUSCULAR HEMOGLOBIN 28.7 pg (29.0-33.0); MEAN CORPUSCULAR HGB CONC 33.2 g/dl (32.0-37.0); MEAN CORPUSCULAR VOLUME 86.5 fl (82.0-101.0); MEAN PLATELET VOLUME 10.2 fl (7.4-10.4); MONOCYTE # 1.5 10^3/ul (0.3-0.9); MONOCYTES % 6.8 % (0.0-11.0); NEUTROPHILS % 84.5 % (39.0-77.0); NUCLEATED RED BLOOD CELLS # 0.1 10^3/ul (0.0-0.0); NUCLEATED RED BLOOD CELLS% 0.4 /100WBC (0.0-0.0); PLATELET COUNT 203 10^3/UL (140-415); RED CELL DISTRIBUTION WIDTH 20.7 % (11.5-14.5)
[2017-11-14 04:57] LABS: WHITE BLOOD COUNT 21.3 10^3/ul (4.8-10.8)
[2017-11-14 05:17] LABS: MAGNESIUM 1.6 mg/dl (1.7-2.5)
[2017-11-14 05:19] LABS: ANION GAP 8 (8-16)
[2017-11-14 05:35] LABS: BLOOD UREA NITROGEN 6 mg/dl (7-20); CALCIUM 8.1 mg/dl (8.4-10.2); CARBON DIOXIDE 29 mmol/L (21-31); CHLORIDE 96 mmol/L (97-110); CREATININE 0.36 mg/dl (0.44-1.00); GLUCOSE 116 mg/dl (70-220); POTASSIUM 3.3 mmol/L (3.5-5.1); SODIUM 130 mmol/L (135-144)
[2017-11-14] MEDS: HYDROmorphONE 4 MG TAB PO ×3 (05:40→20:24)
[2017-11-14] MEDS: PANTOPRAZOLE 40 MG INJ IV (05:40)
[2017-11-14] MEDS: SOD CHLORIDE 0.9% 1,000 ML IV ×6 (08:20→21:40)
[2017-11-14] MEDS: DOCUSATE SODIUM 100 MG CAP PO ×2 (09:19→20:24)
[2017-11-14] MEDS: MAGNESIUM OXIDE 400 MG TAB PO ×2 (09:19→20:24)
[2017-11-14] MEDS: DIPHENHYDRAMINE 50 MG INJ IV (10:55)
[2017-11-14] MEDS: POTASSIUM CHLORIDE (SR) 20 MEQ TAB PO (10:55)
[2017-11-14] MEDS: DEXAMETHASONE IVPB (11:14)
[2017-11-14] MEDS: ONDANSETRON IVPB (11:14)
[2017-11-14] MEDS: DEXTROSE 5% IVPB (11:14)
[2017-11-14] MEDS: SOD CHLORIDE 0.9% IV ×3 (11:56→21:25)
[2017-11-14] MEDS: PACLITAXEL PROTEIN BOUND IV ×2 (11:56→21:25)
[2017-11-14] MEDS: GEMCITABINE IV (13:13)
[2017-11-14] MEDS: MAGNESIUM SULFATE 3 GM in DEXTROSE 5% 100 ML IVPB (14:57)
[2017-11-15] MEDS: SOD CHLORIDE 0.9% 1,000 ML IV ×3 (02:30→12:44)
[2017-11-15 05:29] LABS: ADD MAN DIFF? NO
[2017-11-15 05:38] LABS: ABNORMAL IP MESSAGE 1; BASOPHILS % 0.2 % (0.0-2.0); HEMATOCRIT 29.3 % (37.0-47.0); HEMOGLOBIN 9.6 g/dl (12.0-16.0); LYMPHOCYTES # 0.5 10^3/ul (0.8-2.9); LYMPHOCYTES % 2.4 % (15.0-51.0); MEAN CORPUSCULAR HEMOGLOBIN 28.8 pg (29.0-33.0); MEAN CORPUSCULAR HGB CONC 32.8 g/dl (32.0-37.0); MEAN PLATELET VOLUME 10.3 fl (7.4-10.4); MONOCYTE # 0.3 10^3/ul (0.3-0.9); MONOCYTES % 1.3 % (0.0-11.0); NEUTROPHIL # 17.9 10^3/ul (1.6-7.5); NEUTROPHILS % 94.2 % (39.0-77.0); NUCLEATED RED BLOOD CELLS% 0.2 /100WBC (0.0-0.0); PLATELET COUNT 195 10^3/UL (140-415); RED BLOOD COUNT 3.33 10^6/ul (4.20-5.40); RED CELL DISTRIBUTION WIDTH 20.1 % (11.5-14.5)
[2017-11-15] MEDS: PIPER-TAZO 3.375 GM IV (PMX) 100 ML IVPB ×2 (05:48→12:01)
[2017-11-15] MEDS: PANTOPRAZOLE 40 MG INJ IV (05:48)
[2017-11-15 05:49] LABS: MAGNESIUM 2.2 mg/dl (1.7-2.5)
[2017-11-15 06:09] LABS: ANION GAP 11 (8-16); BLOOD UREA NITROGEN 9 mg/dl (7-20); CALCIUM 7.9 mg/dl (8.4-10.2); CARBON DIOXIDE 30 mmol/L (21-31); CHLORIDE 96 mmol/L (97-110); GLUCOSE 160 mg/dl (70-220); POTASSIUM 4.4 mmol/L (3.5-5.1); SODIUM 133 mmol/L (135-144)
[2017-11-15 06:46] LABS: POSITIVE DIFF @See below
[2017-11-15] MEDS: DOCUSATE SODIUM 100 MG CAP PO (08:39)
[2017-11-15] MEDS: MAGNESIUM OXIDE 400 MG TAB PO (08:39)
[2017-11-15] MEDS: HYDROmorphONE 4 MG TAB PO (10:02)
[2017-11-15] MEDS: HEPARIN (100 UNITS/ML) 5 ML SYG CATHETER (16:01)
== END 2017-11-15 16:30 | disposition home health service (06) | DRG 436 ==
LOC: E/R 10:08 → PP2 14:03 → MS1 11-12 23:20
PROC: 30233N1 Transfusion of Nonautologous Red Blood Cells into Peripheral Vein, Percutaneous Approach (ICD-10-PCS; 2017-11-11)
PROC: 30233N1 Transfusion of Nonautologous Red Blood Cells into Peripheral Vein, Percutaneous Approach (ICD-10-PCS; 2017-11-13)
PROC: 3E03305 Introduction of Other Antineoplastic into Peripheral Vein, Percutaneous Approach (ICD-10-PCS; principal; 2017-11-14)
DX: C25.9 Malignant neoplasm of pancreas, unspecified (principal); N39.0 Urinary tract infection, site not specified; C78.7 Secondary malignant neoplasm of liver and intrahepatic bile duct; D63.0 Anemia in neoplastic disease; G62.9 Polyneuropathy, unspecified; K29.70 Gastritis, unspecified, without bleeding; Z96.89 Presence of other specified functional implants; Z79.02 Long term (current) use of antithrombotics/antiplatelets
CPT/HCPCS: 36430; 71045; 74176; 80048; 80053; 80061; 81001; 81003; 82962; 83036; 83605; 83690; 83735; 84100; 84439; 84443; 85025; 85610; 85730; 86644; 86850; 86900; 86901; 86920; 86945; 87040; 87086; 87400; 93005; 96365; 96366; 96375; 99285-25; J9201

== ENCOUNTER 2017-11-17 14:04 | Inpatient (IN) | payer BC ==
[2017-11-17] MEDS: ONDANSETRON 4 MG INJ IV (16:26)
[2017-11-17] MEDS: SOD CHLORIDE 0.9% 1,000 ML IV ×2 (16:26→19:07)
[2017-11-17] MEDS: morphine 4 MG/ML VIAL IV (16:28)
[2017-11-17 16:54] LABS: ABNORMAL IP MESSAGE 1; HEMATOCRIT 28.9 % (37.0-47.0); HEMOGLOBIN 9.3 g/dl (12.0-16.0); MEAN CORPUSCULAR HEMOGLOBIN 28.5 pg (29.0-33.0); MEAN CORPUSCULAR HGB CONC 32.2 g/dl (32.0-37.0); MEAN CORPUSCULAR VOLUME 88.7 fl (82.0-101.0); MEAN PLATELET VOLUME 11.1 fl (7.4-10.4); PLATELET COUNT 235 10^3/UL (140-415); RED BLOOD COUNT 3.26 10^6/ul (4.20-5.40); RED CELL DISTRIBUTION WIDTH 19.5 % (11.5-14.5)
[2017-11-17] MEDS: HYDROmorphONE 2 MG/ML SYG IV (16:54)
[2017-11-17 17:07] LABS: ADD MAN DIFF? YES; POSITIVE DIFF @See below
[2017-11-17 17:09] LABS: INR 1.27; PROTIME 16.1 Sec (11.9-14.9); PT RATIO 1.3
[2017-11-17 17:14] LABS: ALANINE AMINOTRANSFERASE 129 IU/L (13-69); ALBUMIN 2.9 g/dl (3.3-4.9); ALBUMIN/GLOBULIN RATIO 0.96; ALKALINE PHOSPHATASE 444 IU/L (42-121); ANION GAP 15 (8-16); ASPARTATE AMINO TRANSFERASE 272 IU/L (15-46); BILIRUBIN,INDIRECT 1.5 mg/dl (0-1.1); BILIRUBIN,TOTAL 6.4 mg/dl (0.2-1.3); BLOOD UREA NITROGEN 13 mg/dl (7-20); CARBON DIOXIDE 29 mmol/L (21-31); CHLORIDE 87 mmol/L (97-110); CREATININE 0.49 mg/dl (0.44-1.00); GLUCOSE 169 mg/dl (70-220); POTASSIUM 4.9 mmol/L (3.5-5.1); SODIUM 126 mmol/L (135-144); TOTAL PROTEIN 5.9 g/dl (6.1-8.1)
[2017-11-17 17:29] LABS: TROPONIN-I < 0.012 ng/ml (0.00-0.12)
[2017-11-17] MEDS: SOD CHLORIDE 0.9% 100 ML (17:42)
[2017-11-17] MEDS: IOHEXOL 300MG/ML 150 ML BTL (17:42)
[2017-11-17 18:14] LABS: HEMOGLOBIN 7.5 g/dl (12.0-16.0)
[2017-11-17 18:16] LABS: HYPOCHROMASIA 1+ (0-0); LYMPHOCYTES # 0.9 10^3/ul (0.8-2.9); LYMPHOCYTES #M 0.9 10^3/ul (0.8-2.9); LYMPHOCYTES % (M) 5 % (15-51); SEGMENTED NEUTROPHILS (M) % 95 % (39-77)
[2017-11-17 18:42] LABS: LACTIC ACID 2.2 mmol/L (0.5-2.0)
[2017-11-17] MEDS: HYDROmorphONE 1 MG/ML SYG IV ×2 (19:27→21:22)
[2017-11-17] MEDS ORDERED: ACETAMINOPHEN 325 MG TAB PO (19:30)
[2017-11-17] MEDS ORDERED: ONDANSETRON 4 MG INJ IV (19:30)
[2017-11-17 19:54] LABS: ADD UMIC YES; UR ASCORBIC ACID NEGATIVE (NEGATIVE); UR BACTERIA FEW /HPF (NONE SEEN); UR BILIRUBIN (Dip) 2+ mg/dL (NEGATIVE); UR BLOOD (Dip) 1+ mg/dL (NEGATIVE); UR CLARITY CLEAR (CLEAR); UR COLOR AMBER (YELLOW); UR GLUCOSE (Dip) NEGATIVE (NEGATIVE); UR KETONES (Dip) TRACE mg/dL (NEGATIVE); UR LEUKOCYTE ESTERASE (Dip) NEGATIVE Leu/ul (NEGATIVE); UR MUCUS FEW /HPF (NONE SEEN); UR NITRITE (Dip) NEGATIVE (NEGATIVE); UR RBC 5 /HPF (0-5); UR SPECIFIC GRAVITY (Dip) > 1.060 (1.003-1.030); UR SQUAMOUS EPITHELIAL CELL MODERATE /HPF (FEW); UR TOTAL PROTEIN (Dip) 1+ mg/dl (NEGATIVE); UR UROBILINOGEN (Dip) 2+ mg/dL (NEGATIVE); UR WBC 3 /HPF (0-5)
[2017-11-17] MEDS: CEFTRIAXONE 1 GM/50 ML (PMX) 50 ML IVPB (20:45)
[2017-11-17] MEDS: FAMOTIDINE 20 MG INJ IV (20:45)
[2017-11-17 21:20] LABS: LACTIC ACID 2.1 mmol/L (0.5-2.0)
[2017-11-17 23:03] LABS: LACTIC ACID 1.8 mmol/L (0.5-2.0)
[2017-11-17] MEDS ORDERED: HYDROmorphONE 0.5 MG/0.5 ML SYG IV (23:10)
[2017-11-18 01:34] LABS: IMMEDIATE SPIN CROSSMATCH 1 2
[2017-11-18] MEDS: HYDROmorphONE 4 MG TAB PO ×4 (01:51→22:15)
[2017-11-18] MEDS ORDERED: ONDANSETRON 4 MG INJ IV (02:30)
[2017-11-18] MEDS ORDERED: NACL 0.9% 3 ML SYG IV (02:30)
[2017-11-18] MEDS ORDERED: ALBUTEROL/IPRATROPIUM (NEB) 3 ML AMP HHN (02:30)
[2017-11-18] MEDS: SOD CHLORIDE 0.9% 1,000 ML IV ×3 (06:52→23:52)
[2017-11-18 08:33] LABS: WHITE BLOOD COUNT 10.2 10^3/ul (4.8-10.8)
[2017-11-18 08:33] LABS: ABNORMAL IP MESSAGE 1; HEMATOCRIT 29.6 % (37.0-47.0); HEMOGLOBIN 9.9 g/dl (12.0-16.0); MEAN CORPUSCULAR HEMOGLOBIN 29.1 pg (29.0-33.0); MEAN CORPUSCULAR HGB CONC 33.4 g/dl (32.0-37.0); MEAN CORPUSCULAR VOLUME 87.1 fl (82.0-101.0); MEAN PLATELET VOLUME 10.8 fl (7.4-10.4); PLATELET COUNT 149 10^3/UL (140-415); RED CELL DISTRIBUTION WIDTH 18.3 % (11.5-14.5)
[2017-11-18 08:38] LABS: POSITIVE DIFF @See below
[2017-11-18 08:39] LABS: ADD MAN DIFF? YES
[2017-11-18 08:55] LABS: ALANINE AMINOTRANSFERASE 96 IU/L (13-69); ALBUMIN 2.5 g/dl (3.3-4.9); ALBUMIN/GLOBULIN RATIO 0.86; ALKALINE PHOSPHATASE 393 IU/L (42-121); ANION GAP 13 (8-16); ASPARTATE AMINO TRANSFERASE 189 IU/L (15-46); BILIRUBIN,INDIRECT 1.6 mg/dl (0-1.1); BILIRUBIN,TOTAL 8.3 mg/dl (0.2-1.3); BLOOD UREA NITROGEN 11 mg/dl (7-20); CALCIUM 7.7 mg/dl (8.4-10.2); CARBON DIOXIDE 27 mmol/L (21-31); CHLORIDE 91 mmol/L (97-110); GLUCOSE 143 mg/dl (70-220); MAGNESIUM 1.8 mg/dl (1.7-2.5); POTASSIUM 4.4 mmol/L (3.5-5.1); SODIUM 127 mmol/L (135-144); TOTAL PROTEIN 5.4 g/dl (6.1-8.1)
[2017-11-18 09:19] LABS: OSMOLALITY 264 mOsm/kg (280-295)
[2017-11-18 09:48] LABS: ANISOCYTOSIS 1+ (0-0); BAND NEUTROPHILS #M 0.4 10^3/ul (0.0-0.6); BAND NEUTROPHILS % (M) 4 % (0-4); LYMPHOCYTES #M 0.3 10^3/ul (0.8-2.9); LYMPHOCYTES % (M) 3 % (15-51); MYELOCYTES #M 0.1 10^3/ul (0.0-0.0); MYELOCYTES % (M) 1 % (0-0); PLATELET ESTIMATE NORMAL; POIKILOCYTOSIS 1+ (0-0); POLYCHROMASIA 2+ (0-0); REACTIVE LYMPHOCYTES #M 0.1 10^3/ul (0.0-0.0); REACTIVE LYMPHOCYTES% (M) 1 % (0-0); SEG NEUT #M 9.3 10^3/ul (1.6-7.5); SEGMENTED NEUTROPHILS (M) % 91 % (39-77); SMUDGE%M 4 % (0-0)
[2017-11-18 12:38] LABS: OSMOLALITY,URINE 811 mOsm/kg (250-1200)
[2017-11-18 12:43] LABS: SODIUM,URINE RANDOM < 13 mmol/L (30-90)
[2017-11-18] MEDS ORDERED: BISACODYL 10 MG SUPP PR (15:00)
[2017-11-18] MEDS ORDERED: SENNA/DOCUSATE NA (8.6MG/50MG) TAB PO (15:00)
[2017-11-18] MEDS: morphine 2 MG INJ IV (19:39)
[2017-11-18] MEDS: ACETAMINOPHEN 325 MG TAB PO (20:53)
[2017-11-18] MEDS: CEFEPIME 2GM/50 ML (PMX) 50 ML IVPB (20:58)
[2017-11-19] MEDS: HYDROmorphONE 4 MG TAB PO ×5 (04:05→23:57)
[2017-11-19 07:47] LABS: ABNORMAL IP MESSAGE 1; HEMOGLOBIN 9.8 g/dl (12.0-16.0); MEAN CORPUSCULAR HEMOGLOBIN 29.3 pg (29.0-33.0); MEAN CORPUSCULAR HGB CONC 33.8 g/dl (32.0-37.0); MEAN CORPUSCULAR VOLUME 86.8 fl (82.0-101.0); MEAN PLATELET VOLUME 10.6 fl (7.4-10.4); PLATELET COUNT 86 10^3/UL (140-415); RED BLOOD COUNT 3.34 10^6/ul (4.20-5.40); RED CELL DISTRIBUTION WIDTH 18.3 % (11.5-14.5)
[2017-11-19 07:47] LABS: WHITE BLOOD COUNT 5.4 10^3/ul (4.8-10.8)
[2017-11-19 07:59] LABS: POSITIVE DIFF @See below
[2017-11-19 08:00] LABS: ADD MAN DIFF? YES
[2017-11-19 08:01] LABS: ALANINE AMINOTRANSFERASE 74 IU/L (13-69); ALBUMIN 2.4 g/dl (3.3-4.9); ALBUMIN/GLOBULIN RATIO 0.85; ALKALINE PHOSPHATASE 391 IU/L (42-121); ANION GAP 13 (8-16); ASPARTATE AMINO TRANSFERASE 130 IU/L (15-46); BILIRUBIN,INDIRECT 1.5 mg/dl (0-1.1); BILIRUBIN,TOTAL 7.8 mg/dl (0.2-1.3); BLOOD UREA NITROGEN 11 mg/dl (7-20); CALCIUM 7.6 mg/dl (8.4-10.2); CARBON DIOXIDE 26 mmol/L (21-31); CHLORIDE 91 mmol/L (97-110); GLUCOSE 117 mg/dl (70-220); POTASSIUM 4.3 mmol/L (3.5-5.1); SODIUM 126 mmol/L (135-144); TOTAL PROTEIN 5.2 g/dl (6.1-8.1)
[2017-11-19 08:06] LABS: MAGNESIUM 1.6 mg/dl (1.7-2.5)
[2017-11-19] MEDS: SOD CHLORIDE 0.9% 1,000 ML IV ×3 (08:20→22:56)
[2017-11-19] MEDS: CEFEPIME 2GM/50 ML (PMX) 50 ML IVPB ×2 (08:21→21:00)
[2017-11-19] MEDS: POLYETHYLENE GLYCOL 17 GM PACKET PO (08:21)
[2017-11-19 09:37] LABS: ANISOCYTOSIS 1+ (0-0); BAND NEUTROPHILS #M 0.8 10^3/ul (0.0-0.6); BAND NEUTROPHILS % (M) 15 % (0-4); BURR CELLS 2+ (0-0); GIANT THROMBO% (M) 1 % (0-0); LYMPHOCYTES #M 0.1 10^3/ul (0.8-2.9); LYMPHOCYTES % (M) 3 % (15-51); MONOCYTE #M 0.1 10^3/ul (0.3-0.9); MONOCYTES % (M) 2 % (0-11); PLATELET ESTIMATE SIG DECREASED; POIKILOCYTOSIS 2+ (0-0); POLYCHROMASIA 3+ (0-0); REACTIVE LYMPHOCYTES% (M) 1 % (0-0); SEG NEUT #M 4.3 10^3/ul (1.6-7.5); SEGMENTED NEUTROPHILS (M) % 79 % (39-77); SMUDGE%M 3 % (0-0)
[2017-11-19] MEDS: MAGNESIUM SULFATE 2 GM/50 ML 50 ML IVPB (10:00)
[2017-11-19] MEDS: SENNA/DOCUSATE NA (8.6MG/50MG) TAB PO (21:00)
[2017-11-20] MEDS: morphine 2 MG INJ IV ×2 (01:56→19:05)
[2017-11-20] MEDS: SOD CHLORIDE 0.9% 1,000 ML IV ×2 (04:20→13:55)
[2017-11-20] MEDS: HYDROmorphONE 4 MG TAB PO ×4 (05:44→21:06)
[2017-11-20 08:19] LABS: ABNORMAL IP MESSAGE 1; HEMATOCRIT 27.5 % (37.0-47.0); HEMOGLOBIN 9.2 g/dl (12.0-16.0); MEAN CORPUSCULAR HEMOGLOBIN 28.9 pg (29.0-33.0); MEAN CORPUSCULAR HGB CONC 33.5 g/dl (32.0-37.0); MEAN CORPUSCULAR VOLUME 86.5 fl (82.0-101.0); MEAN PLATELET VOLUME 10.8 fl (7.4-10.4); NUCLEATED RED BLOOD CELLS% 0.7 /100WBC (0.0-0.0); PLATELET COUNT 52 10^3/UL (140-415); RED BLOOD COUNT 3.18 10^6/ul (4.20-5.40); RED CELL DISTRIBUTION WIDTH 18.2 % (11.5-14.5)
[2017-11-20 08:19] LABS: WHITE BLOOD COUNT 6.9 10^3/ul (4.8-10.8)
[2017-11-20 08:33] LABS: ALANINE AMINOTRANSFERASE 69 IU/L (13-69); ALBUMIN 2.3 g/dl (3.3-4.9); ALBUMIN/GLOBULIN RATIO 0.82; ALKALINE PHOSPHATASE 457 IU/L (42-121); ANION GAP 11 (8-16); ASPARTATE AMINO TRANSFERASE 139 IU/L (15-46); BILIRUBIN,INDIRECT 1.4 mg/dl (0-1.1); BILIRUBIN,TOTAL 9.3 mg/dl (0.2-1.3); BLOOD UREA NITROGEN 13 mg/dl (7-20); CALCIUM 7.5 mg/dl (8.4-10.2); CARBON DIOXIDE 25 mmol/L (21-31); CHLORIDE 91 mmol/L (97-110); CREATININE 0.39 mg/dl (0.44-1.00); GLUCOSE 124 mg/dl (70-220); POTASSIUM 4.2 mmol/L (3.5-5.1); SODIUM 123 mmol/L (135-144); TOTAL PROTEIN 5.1 g/dl (6.1-8.1)
[2017-11-20 08:52] LABS: POSITIVE DIFF @See below
[2017-11-20 08:53] LABS: ADD MAN DIFF? YES
[2017-11-20] MEDS: SENNA/DOCUSATE NA (8.6MG/50MG) TAB PO ×2 (09:29→21:06)
[2017-11-20] MEDS: CEFEPIME 2GM/50 ML (PMX) 50 ML IVPB (09:29)
[2017-11-20] MEDS: POLYETHYLENE GLYCOL 17 GM PACKET PO (09:29)
[2017-11-20 10:31] LABS: ANISOCYTOSIS 1+ (0-0); BAND NEUTROPHILS #M 0.2 10^3/ul (0.0-0.6); BAND NEUTROPHILS % (M) 4 % (0-4); BURR CELLS 1+ (0-0); LYMPHOCYTES #M 0.4 10^3/ul (0.8-2.9); LYMPHOCYTES % (M) 6 % (15-51); MONOCYTE #M 0.3 10^3/ul (0.3-0.9); MONOCYTES % (M) 5 % (0-11); PLATELET ESTIMATE DECREASED; POIKILOCYTOSIS 1+ (0-0); POLYCHROMASIA 2+ (0-0); SEG NEUT #M 5.9 10^3/ul (1.6-7.5); SEGMENTED NEUTROPHILS (M) % 85 % (39-77); SMUDGE%M 6 % (0-0)
[2017-11-20] MEDS: FUROSEMIDE 20 MG INJ IV ×2 (12:45→21:06)
[2017-11-20] MEDS: RIFAMPIN 300 MG CAP PO (21:24)
[2017-11-20] MEDS: COLISTIMETHATE 150 MG in SOD CHLORIDE 0.9% 100 ML IVPB (21:25)
[2017-11-21] MEDS: morphine 2 MG INJ IV ×2 (03:25→14:31)
[2017-11-21] MEDS: SOD CHLORIDE 0.9% 1,000 ML IV (06:41)
[2017-11-21] MEDS: HYDROmorphONE 4 MG TAB PO ×2 (06:41→11:41)
[2017-11-21 07:20] LABS: ADD MAN DIFF? NO
[2017-11-21 07:29] LABS: WHITE BLOOD COUNT 6.9 10^3/ul (4.8-10.8)
[2017-11-21 07:29] LABS: ABNORMAL IP MESSAGE 1; BASOPHILS % 0.6 % (0.0-2.0); HEMATOCRIT 25.3 % (37.0-47.0); HEMOGLOBIN 8.7 g/dl (12.0-16.0); LYMPHOCYTES # 0.6 10^3/ul (0.8-2.9); LYMPHOCYTES % 8.2 % (15.0-51.0); MEAN CORPUSCULAR HEMOGLOBIN 29.2 pg (29.0-33.0); MEAN CORPUSCULAR HGB CONC 34.4 g/dl (32.0-37.0); MEAN CORPUSCULAR VOLUME 84.9 fl (82.0-101.0); MEAN PLATELET VOLUME 12.3 fl (7.4-10.4); MONOCYTE # 0.9 10^3/ul (0.3-0.9); MONOCYTES % 12.4 % (0.0-11.0); NEUTROPHILS % 72.4 % (39.0-77.0); NUCLEATED RED BLOOD CELLS # 0.2 10^3/ul (0.0-0.0); NUCLEATED RED BLOOD CELLS% 2.6 /100WBC (0.0-0.0); RED BLOOD COUNT 2.98 10^6/ul (4.20-5.40); RED CELL DISTRIBUTION WIDTH 18.8 % (11.5-14.5)
[2017-11-21 07:30] LABS: POSITIVE DIFF @See below
[2017-11-21 07:31] LABS: PLATELET COUNT 51 10^3/UL (140-415)
[2017-11-21 07:59] LABS: ALANINE AMINOTRANSFERASE 71 IU/L (13-69); ALBUMIN 2.3 g/dl (3.3-4.9); ALBUMIN/GLOBULIN RATIO 0.79; ALKALINE PHOSPHATASE 449 IU/L (42-121); ANION GAP 15 (8-16); ASPARTATE AMINO TRANSFERASE 192 IU/L (15-46); BILIRUBIN,INDIRECT 1.6 mg/dl (0-1.1); BILIRUBIN,TOTAL 9.5 mg/dl (0.2-1.3); BLOOD UREA NITROGEN 19 mg/dl (7-20); CALCIUM 7.7 mg/dl (8.4-10.2); CARBON DIOXIDE 23 mmol/L (21-31); CHLORIDE 89 mmol/L (97-110); CREATININE 0.49 mg/dl (0.44-1.00); GLUCOSE 138 mg/dl (70-220); POTASSIUM 4.4 mmol/L (3.5-5.1); SODIUM 123 mmol/L (135-144); TOTAL PROTEIN 5.2 g/dl (6.1-8.1)
[2017-11-21] MEDS: POLYETHYLENE GLYCOL 17 GM PACKET PO (08:15)
[2017-11-21] MEDS: SENNA/DOCUSATE NA (8.6MG/50MG) TAB PO (08:15)
[2017-11-21] MEDS: RIFAMPIN 300 MG CAP PO (08:16)
[2017-11-21] MEDS: COLISTIMETHATE 150 MG in SOD CHLORIDE 0.9% 100 ML IVPB (08:16)
[2017-11-21 08:47] LABS: ANISOCYTOSIS 1+ (0-0); BAND NEUTROPHILS #M 0.5 10^3/ul (0.0-0.6); BAND NEUTROPHILS % (M) 8 % (0-4); ERYTHROBLAST% (NRBC) (M) 10 % (0-0); GIANT THROMBO% (M) 1 % (0-0); LYMPHOCYTES #M 0.6 10^3/ul (0.8-2.9); LYMPHOCYTES % (M) 10 % (15-51); METAMYELOCYTES %M 1 % (0-0); MONOCYTE #M 0.8 10^3/ul (0.3-0.9); MONOCYTES % (M) 13 % (0-11); PLATELET ESTIMATE SIG DECREASED; POLYCHROMASIA 1+ (0-0); SEG NEUT #M 4.7 10^3/ul (1.6-7.5); SEGMENTED NEUTROPHILS (M) % 68 % (39-77); SMUDGE%M 4 % (0-0)
[2017-11-21] MEDS: TRIMETHOPRIM/SULFAMETHOXAZOLE 20 ML in DEXTROSE 5% 500 ML IVPB (12:30)
== END 2017-11-21 15:15 | disposition hospice, home (50) | DRG 811 ==
LOC: TEL 23:16 → E/R 14:04 → TEL 19:22
PROC: 30233N1 Transfusion of Nonautologous Red Blood Cells into Peripheral Vein, Percutaneous Approach (ICD-10-PCS; principal; 2017-11-17)
DX: D64.81 Anemia due to antineoplastic chemotherapy (principal); I81 Portal vein thrombosis; C78.7 Secondary malignant neoplasm of liver and intrahepatic bile duct; C25.9 Malignant neoplasm of pancreas, unspecified; R78.81 Bacteremia; K72.90 Hepatic failure, unspecified without coma; E87.1 Hypo-osmolality and hyponatremia; E86.0 Dehydration; D72.829 Elevated white blood cell count, unspecified; D64.89 Other specified anemias; G62.9 Polyneuropathy, unspecified; T45.1X5A Adverse effect of antineoplastic and immunosuppressive drugs, initial encounter; K59.00 Constipation, unspecified; Z51.5 Encounter for palliative care
CPT/HCPCS: 36415; 36430; 74177; 80053; 81001; 83605; 83735; 83930; 83935; 84300; 84484; 85014; 85018; 85025; 85610; 85730; 86850; 86900; 86901; 86920; 87040; 87086; 93005; 96374; 96375; 96376; 99285-25; J1940